=== PATIENT | female | born 1985 | race Caucasian/White ===

== ENCOUNTER 2017-07-17 14:45 | Emergency (ER) | payer MEDICAID ==
[~2017-07-17] VITALS: Ht 165.1 cm; Wt 93.9 kg
[~2017-07-17 14:45] MED LIST: AMOX-101 PO; HYDR-2514 PO; MOT200T PO
[2017-07-17 14:52] VITALS: BP 119/72
[2017-07-17] MEDS ORDERED: CLIN-80 PO (15:10)
[2017-07-17] MEDS ORDERED: ACET1TAB12 PO (15:10)
== END 2017-07-17 15:26 | disposition home or self-care (01) ==
LOC: ER 14:45
DX: K08.89 Other specified disorders of teeth and supporting structures (principal); Z88.0 Allergy status to penicillin
CPT/HCPCS: 99283

== ENCOUNTER 2021-03-09 14:00 | Emergency (ER) | payer MEDICAID ==
[~2021-03-09] VITALS: Ht 165.1 cm; Wt 100.0 kg
[~2021-03-09 14:00] MED LIST changes: +ACET1TAB12 PO; +CLIN-97 PO
[2021-03-09] MEDS ORDERED: LIDOcaine 1% W/epiNEPHrine 1:200,000 10ml vial IJ ONE (14:25)
[2021-03-09 14:34] VITALS: BP 161/96
[2021-03-09] MEDS ORDERED: ALBUTEROL INHALER 1 PUFF/90 MCG INHALER IH PRN (15:45)
[2021-03-09] MEDS ORDERED: ALBU18HF2 INH (17:21)
[2021-03-09] MEDS ORDERED: AZIT250T PO (17:21)
== END 2021-03-09 17:08 | disposition home or self-care (01) ==
LOC: ER 14:02
DX: U07.1 COVID-19 (principal); Z88.0 Allergy status to penicillin; Z79.899 Other long term (current) drug therapy
CPT/HCPCS: 36415; 71045; 99284; U0003; U0005

== ENCOUNTER 2022-02-16 14:43 | Emergency (ER) | payer MEDICAID ==
[~2022-02-16] VITALS: Ht 165.1 cm; Wt 100.0 kg
[~2022-02-16 14:43] MED LIST changes: +ALBU18HF2 INH
[2022-02-16 14:48] VITALS: BP 142/78
== END 2022-02-16 15:42 | disposition home or self-care (01) ==
LOC: ER 14:44
DX: M25.512 Pain in left shoulder (principal); Z79.899 Other long term (current) drug therapy; Z88.5 Allergy status to narcotic agent; Z88.0 Allergy status to penicillin; Z79.2 Long term (current) use of antibiotics; W19.XXXA Unspecified fall, initial encounter; Y93.89 Activity, other specified; Y92.89 Other specified places as the place of occurrence of the external cause; Y99.8 Other external cause status
CPT/HCPCS: 73030; 99283

== ENCOUNTER 2022-12-05 17:00 | Emergency (ER) | payer MEDICAID ==
[~2022-12-05] VITALS: Ht 165.1 cm; Wt 105.5 kg
[2022-12-05 17:23] VITALS: BP 159/94
== END 2022-12-05 19:49 | disposition home or self-care (01) ==
LOC: ER 17:00
DX: M79.671 Pain in right foot (principal); Z88.5 Allergy status to narcotic agent; Z88.0 Allergy status to penicillin; Z79.899 Other long term (current) drug therapy
CPT/HCPCS: 73630; 99283

== ENCOUNTER 2024-10-14 08:23 | Emergency (ER) | payer MEDICAID ==
[~2024-10-14] VITALS: Ht 165.1 cm; Wt 102.4 kg
[2024-10-14] MEDS: ketorolac trometh 15mg/ml vial 15 MG/ML ML IM ONE (09:36)
[2024-10-14] MEDS: diphenhydrAMINE 50 mg/ml inj IM ONE (10:15)
[2024-10-14] MEDS: proCHLORperazine 10 MG/2 ml inj IM ONE (10:15)
[2024-10-14] MEDS: dexamethasone sod phosphate 10mg/ml inj PO STA (10:15)
[2024-10-14 10:35] VITALS: BP 136/81; PULSE 81; RESP 16; TEMP 98.5; O2SAT 99
== END 2024-10-14 10:37 | disposition home or self-care (01) ==
LOC: ER 08:24
DX: R51.9 Headache, unspecified (principal); M54.2 Cervicalgia; M25.512 Pain in left shoulder; M25.511 Pain in right shoulder; Z20.822 Contact with and (suspected) exposure to COVID-19; Z88.0 Allergy status to penicillin; Z88.5 Allergy status to narcotic agent
CPT/HCPCS: 36415; 87502; 87503; 87811; 96372; 99284; J0780; J1100; J1200; J1885

== ENCOUNTER 2024-11-19 07:35 | Day surgery (SDC) | payer MEDICAID ==
[~2024-11-19] VITALS: Ht 162.6 cm; Wt 147.0 kg
[~2024-11-19 07:35] MED LIST changes: -ACET1TAB12 PO; +ACYC-126 PO; -AMOX-101 PO; +ATOR10TA70 PO; -CLIN-97 PO; +NICO-687 TOP; +OMEP20CA16 PO
[2024-11-19 08:12] VITALS: BP 140/86; PULSE 83; RESP 13
[2024-11-19 09:50] VITALS: BP 116/75; PULSE 73; RESP 16; O2SAT 100
[2024-11-19 10:00] VITALS: BP 106/73; PULSE 63; RESP 15; O2SAT 100
[2024-11-19 10:10] VITALS: BP 125/79; PULSE 61; RESP 16; O2SAT 100
[2024-11-19 10:20] VITALS: BP 130/68; PULSE 61; RESP 16; O2SAT 100
[2024-11-19] MEDS ORDERED: LIDOcaine 1%/PF 5ML 10 MG/ML VIAL ONE (11:28)
[2024-11-19] MEDS ORDERED: propofol inj 20 ML IV ONE ×4 (11:28)
--- NOTE | 2024-11-20 14:35 | PATHOLOGY REPORT ---
[facility] [address] [place] [address] SURGICAL PATHOLOGY REPORT CaseNumber: [id number] Surgeon:Reid Dawkins M.D. CLINICAL INFORMATION CLINICAL INFORMATION: A) Epigastric abdominal pain, functional dyspepsia. B) Clinically significant d iarrhea of unspecified origin, change in bowel habits. DIAGNOSIS DIAGNOSIS: A.GASTRIC ANTRUM, BIOPSIES X 3 - NO SIGNIFICANT INFLAMMATION, EDEMA, OR VASCULAR CONGESTION - NO INTESTINAL METAPLASIA BY PAS STAINING - NO DYSPLASIA OR MALIGNANCY - NO H. PYLORI ORGANISMS ARE HIGHLIGHTED BY IMMUNOHISTOCHEMISTRY DIAGNOSIS: B.COLON, MULTIPLE RANDOM BIOPSIES - OCCASIONAL SMALL BENIGN LYMPHOID AGGREGATES - NO SIGNIFICANT INFLAMMATION OR LYMPHOCYTIC COLITIS - NO INCREASED SUBMUCOSAL COLLAGEN DEPOSITION - NO INFECTIOUS ELEMENTS ARE IDENTIFIED - NO DYSPLASTIC OR NEOPLASTIC FEATURES MICROSCOPIC DESCRIPTION A. GASTRIC ANTRUM, BIOPSIES X 3 MICROSCOPIC DESCRIPTION: Reviewed is a single H&E-stained slide showing serial sections and levels of fragments of gastric antral-type mucosa. There is no significant inflammation, edema, or vascular co ngestion. There is no intestinal metaplasia by PAS staining. There are no dysplastic or neoplastic fe atures. Also, no H. pylori organisms are highlighted by immunohistochemistry. B. COLON, MULTIPLE RANDOM BIOPSIES MICROSCOPIC DESCRIPTION: Reviewed is a single H&E-stained slide showing sections on levels of multipl e fragments of colonic mucosa. There are occasional small benign lymphoid aggregates. However, there is no significant inflammation or features of lymphocytic colitis. There is no increased submucosal c ollagen deposition. No infectious elements are identified. There are no dysplastic or neoplastic feat ures. GROSS DESCRIPTION A. GASTRIC ANTRUM, BIOPSIES X 3 GROSS DESCRIPTION: Received in a container of formalin labeled with the patients name, number, and "a ntrum BX" are 3 pieces of finley tissue. The specimen is entirely submitted as A1. The time at which the specimen was removed was 919. The time at which the specimen was placed in formalin was 920. B. COLON, MULTIPLE RANDOM BIOPSIES GROSS DESCRIPTION: Received in a container of formalin labeled with the patient's name, number, and " random colon BX" is a 0.6 x 0.5 x 0.1 cm aggregate of irregularly shaped pieces of finley tissue. The sp ecimen is entirely submitted as B1. The time at which the specimen was removed was 09. The time at which the specimen was placed in formalin was 0943. Electronically signed by: Asher Patel M.D. 11/20/2024 2:01:00 PM
== END 2024-11-19 10:22 | disposition home or self-care (01) ==
LOC: GI LAB 07:35
PROVIDERS: ATTEND Internal Medicine Gastroenterology
DX: R19.7 Diarrhea, unspecified (principal); K30 Functional dyspepsia; R19.4 Change in bowel habit; K31.89 Other diseases of stomach and duodenum; Z88.0 Allergy status to penicillin; Z88.6 Allergy status to analgesic agent; E66.9 Obesity, unspecified; Z68.43 Body mass index [BMI] 50.0-59.9, adult
CPT/HCPCS: 43239; 45380; J2704; J3490; J7030; Z7512; A4620